=== PATIENT | female | born 1965 | race African-American/Black ===

== ENCOUNTER 2016-08-28 12:47 | Emergency (ER) | payer OTHER ==
[~2016-08-28] VITALS: Ht 167.6 cm; Wt 72.6 kg
[2016-08-28 13:18] LABS: HEMATOCRIT 40.9 % (37.0-47.0); HEMOGLOBIN 13.4 gm/dL (12.0-15.0); MCHC 32.8 g/dL (28.0-37.0); MCV 73.1 fL (80.0-100.0); RBC 5.59 mil/uL (4.20-5.00); RDW 15.9 % (10.5-14.5); WBC 5.2 thou/uL (4.0-11.0)
[2016-08-28 13:26] LABS: ANION GAP 10 mmol/L (7-16); BUN 8 mg/dL (7-18); CALCIUM 9.1 mg/dL (8.5-10.1); CHLORIDE 103 mmol/L (98-107); CO2 26 mmol/L (21-32); CREATININE 0.9 mg/dL (0.6-1.0); GLUCOSE 106 mg/dL (74-106); POTASSIUM 3.5 mmol/L (3.5-5.1); SALICYLATE < 2.8 mg/dL (2.8-20.0); SODIUM 139 mmol/L (136-145)
[2016-08-28 13:28] LABS: URINE BILIRUBIN 1+ (Negative); URINE BLOOD NEGATIVE (Negative); URINE COLOR YELLOW; URINE GLUCOSE-RANDOM* NEGATIVE (Negative); URINE KETONES 1+ (Negative); URINE LEUKOCYTES-REFLEX NEGATIVE (Negative); URINE PROTEIN (DIPSTICK) NEGATIVE (Negative); URINE SPECIFIC GRAVITY 1.025 (1.003-1.035); URINE UROBILINOGEN 0.2 E.U./dl (0.2-1.0)
[2016-08-28 13:31] LABS: ICTOTEST (BILI CONFIRMATORY) Negative (Negative)
[2016-08-28 13:36] LABS: AMP/METHAMP Negative (Negative); BARBITURATES Negative (Negative); BENZODIAZEPINES Negative (Negative); COCAINE Negative (Negative); METHADONE Negative (Negative); OPIATES Negative (Negative); PCP Negative (Negative); THC Negative (Negative)
[2016-08-29 02:32] VITALS: BP 131/68
[2016-08-30 19:09] LABS: TRICYCLIC (TCA) CONFIRMATION Negative ng/mL (Cutoff=100)
== END 2016-08-29 02:33 ==
LOC: EDBD 12:47 → ER 12:47
PROVIDERS: Emergency Medicine
DX: F23 Brief psychotic disorder (principal)

== ENCOUNTER 2018-02-27 19:45 | Emergency (ER) | payer OTHER ==
[~2018-02-27] VITALS: Ht 162.6 cm; Wt 94.8 kg
[2018-02-27] MEDS ORDERED: UNICOMPLEX M TA1 TA1 PO (20:05)
[2018-02-27] MEDS ORDERED: LISINOPRIL2.5 MG PO (20:05)
[2018-02-27] MEDS ORDERED: [UNRECOGNIZED DRUG - OTHER] PO (20:06)
[2018-02-27] MEDS ORDERED: NORCO 5-325 TA1 EACH PO (21:16)
== END 2018-02-27 21:26 | disposition home or self-care (01) ==
LOC: ER 19:45
DX: M79.672 Pain in left foot (principal); W10.9XXA Fall (on) (from) unspecified stairs and steps, initial encounter; Y93.89 Activity, other specified; Y99.8 Other external cause status; Y92.89 Other specified places as the place of occurrence of the external cause